=== PATIENT | male | born 1990 | race Caucasian/White ===

== ENCOUNTER 2016-10-07 15:20 | Inpatient (IN) | payer SELFPAY ==
--- NOTE | ~2016-10-07 | DS ---
Unit #: [id number] #: [id number] Patient: MARYAM ANDRADE [id number] [facility] [address] [place] [address] [id number] MR#: [id number] NAME: MARYAM ANDRADE ROOM: [facility] Age: 25 Sex: M Admission Date: 10/07/2016 : 1990 Discharge Date: 10/08/2016 Attending Physician: Darrius Marinelli M.D. Primary Care Physician: Generic Doctor Not In System DISCHARGE SUMMARY REASON FOR ADMISSION Depression. DIAGNOSTIC STUDIES LABORATORY RESULTS: Unremarkable. HOSPITAL COURSE The patient was admitted to inpatient unit on 10/07/2016 and discharged on 10/08/2016. The patient was treated with medication management, psychotherapy, and structured milieu. The patient responded well. Subsequently, the patient was discharged with a plan to follow up in outpatient program. At the time of discharge, the patient not suicidal or homicidal or psychotic. DISCHARGE MEDICATIONS None. DISCHARGE DIAGNOSES Psychiatric: Mood disorder, not otherwise specified, F32.9; rule out major depressive disorder, F33.2; and cannabis abuse, moderate, F12.20. Secondary diagnosis: Deferred. Medical diagnosis: None. Stressors: Psychosocial stressors. DISCHARGE INSTRUCTIONS The patient to follow up in outpatient clinic as per social worker aide. CONDITION ON DISCHARGE The patient was pleasant and cooperative. Denied any psychotic symptom or any suicidal ideation. PROGNOSIS Guarded. DIET AND ACTIVITY As tolerated. Dictated by... Darrius Marinelli M.D. Unit #: [id number] #: [id number] Patient: MARYAM ANDRADE SZC/modl TD: 10/16/2016 14:44 JOB #: [id number] DISCHARGE SUMMARY Page 1 of 1 X Darrius Marinelli MD X DISCHARGE SUMMARY
--- NOTE | ~2016-10-07 | HP ---
Unit #: [id number] #: [id number] Patient: MARYAM ANDRADE [id number] [facility] [address] [place] [address] [id number] MR#: [id number] NAME: MARYAM ANDRADE ROOM: [facility] Age: 25 Sex: M Admission Date: 10/07/2016 : 1990 Attending Physician: Darrius Marinelli M.D. Admitting Physician: Darrius Marinelli M.D. Primary Care Physician: Generic Doctor Not In System HISTORY AND PHYSICAL HISTORY OF PRESENT ILLNESS Maryam is a 25-year-old male admitted on 10/07/[address] [place] [address] for suicidal ideation with a plan to kill himself in his car. PAST MEDICAL HISTORY None. PAST SURGICAL HISTORY None. SOCIAL HISTORY Smokes 6 cigarettes daily. No alcohol use. Does report occasional marijuana use. He is currently and living with his mother. FAMILY HISTORY Noncontributory. REVIEW OF SYSTEMS CONSTITUTIONAL: No fever or chills. HEENT: Denies any sore throat, ear pain or runny nose. CARDIOVASCULAR: Denies chest pain, irregular heart rhythm or palpitations. CHEST: Denies shortness of breath or cough. No hemoptysis. GASTROINTESTINAL: Denies nausea, vomiting, diarrhea or chronic constipation. ENDOCRINE: Denies history of increased thirst or urination. No recent significant weight loss or gain. GENITOURINARY: Denies dysuria, frequency, or hematuria. SKIN: Denies any rashes. HEMATOLOGIC: Denies history of increased bleeding or bruising. MUSCULOSKELETAL: Denies any hot, swollen joints. No generalized muscle pain. NEUROLOGIC: Denies problems with vision or speech. No frequent, severe headaches. No numbness, tingling or weakness in any extremities. Denies loss of bladder or bowel control. CURRENT MEDICATIONS None. ALLERGIES None. PHYSICAL EXAMINATION GENERAL: Alert, oriented, no acute distress. Unit #: [id number] #: [id number] Patient: MARYAM ANDRADE VITAL SIGNS: Blood pressure 113/72, heart rate 61, respirations 18, temperature 98.4. HEIGHT: 6 feet 3. WEIGHT: 210 pounds. SKIN: Warm, dry. No rashes or lesions, track bey, cuts, etc. HEENT: Normocephalic. TMs not viewed. Oronasal passages clear. Conjunctivae clear. PERRLA. EOM is intact. NECK: No lymphadenopathy or thyromegaly. HEART: Regular rate and rhythm. No murmur, gallop, or rub. LUNGS: Clear to auscultation bilaterally. ABDOMEN: Soft, nontender without palpable masses or hepatosplenomegaly. : Not assessed. EXTREMITIES: No evidence of cyanosis, clubbing, or edema. Moves all extremities independently without obvious deficit. NEUROLOGICAL: Grossly within normal limits. Cranial Nerves: II: Visual maurice are intact. III, IV AND : Extraocular movements are intact. Pupils are equal, round and reactive to light. V: Facial sensation is grossly normal. VII: Facial movements and expression are normal. VIII: Auditory acuity grossly intact. IX, X: Uvula is midline. Phonation is normal. XI: Patient shrugs shoulders and turns head normally. XII: Tongue protrudes in the midline. Sensory and Motor Function: Sensory and motor sensation is grossly normal. Motor: moves all extremities well. Coordination: Gait is normal. Deep Tendon Reflexes: Intact. IMPRESSION Psychiatric admission. RECOMMENDATIONS PSYCHIATRIC: Per psychiatrist. MEDICAL: No contraindication to participate in this facility's activities. MEDICAL PROGNOSIS Good. MEDICAL CONDITION Stable. Dictated by... Sanaz Gama/lul TD: 10/08/2016 10:45 JOB #: [id number] Unit #: [id number] #: [id number] Patient: MARYAM ANDRADE HISTORY AND PHYSICAL Page 1 of 1 X FINA BARRIOS APRN HISTORY AND PHYSICAL
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
[2016-10-08 11:31] LABS: BASOPHIL% 0.5 % (0-2.5); EOSINOPHIL# 0.2 X10e3 (0-0.7); HEMATOCRIT 47.3 % (38.0-50.0); HEMOGLOBIN 15.6 gm/dL (13.0-16.0); LYMPHOCYTE# 2.2 X10e3 (1.0-3.5); LYMPHOCYTE% 41.4 % (17.0-45.0); MEAN CELL VOLUME 91.6 FL (83-96); MEAN CORPUSCULAR HEMOGLOBIN 30.2 PG (28-34); MEAN PLATELET VOLUME 9.2 FL (6.5-11.5); MONOCYTE# 0.5 X10e3 (0-1.0); MONOCYTE% 8.6 % (3.0-12.0); NEUTROPHIL# 2.5 X10e3 (1.5-7.1); NEUTROPHIL% 46.5 % (40-75); PLATELET COUNT 145 X10e3 (140-420); RED BLOOD COUNT 5.16 X10e (3.90-5.60); RED CELL DISTRIBUTION WIDTH 12.7 % (11.0-15.5); WHITE BLOOD COUNT 5.3 X10e3 (4.0-10.5)
[2016-10-08 11:33] LABS: DIFF IND NO
[2016-10-08 11:42] LABS: ALBUMIN SERUM 4.7 g/dL (3.5-5.0); BILIRUBIN,TOTAL 1.7 mg/dL (0.2-2.0); CALCIUM SERUM 9.7 mg/dL (8.4-10.2); GLOM FILT RATE Estimated 104.9 mL/min (>60); POTASSIUM 4.2 mmol/L (3.5-5.1); PROTEIN TOTAL SERUM 6.7 g/dL (6.0-8.3)
== END 2016-10-08 14:34 | disposition home or self-care (01) | DRG 885 ==
LOC: POF 15:20 → P2L 16:54
PROVIDERS: Psychiatry & Neurology Psychiatry
DX: F39 Unspecified mood [affective] disorder (principal); F33.2 Major depressive disorder, recurrent severe without psychotic features; F12.20 Cannabis dependence, uncomplicated
CPT/HCPCS: 80053; 85025